=== PATIENT | female | born 1970 | race Caucasian/White ===

== ENCOUNTER → 2016-08-25 | Outpatient (CLI) | payer OTHER ==
[~2016-08-25] MED LIST: CLONAZEPAM2 MG PO; FLUOXETINE HCL40 MG PO; NORCO 5/3251 TABLET PO; OMEPRAZOLE20 MG PO; ULTRAM50 MG PO; ZANTAC150 MG PO; ZOFRAN4 MG PO
== END | disposition home or self-care (01) ==
LOC: EKG 10:00
DX: H53.9 Unspecified visual disturbance (principal)
CPT/HCPCS: 93306